=== PATIENT | male | born 1985 | race African-American/Black ===

== ENCOUNTER → 2022-07-05 | Outpatient (CLI) | payer OTHER | LOC: COL.PUL 12:59 | DX: R06.02 Shortness of breath (principal) | CPT/HCPCS: J7674 ==

== ENCOUNTER → 2022-09-26 | Outpatient (CLI) | payer OTHER | LOC: COL.PUL 10:00 | DX: R06.02 Shortness of breath (principal) | CPT/HCPCS: J7674 ==

== ENCOUNTER → 2022-10-04 | Outpatient (CLI) | payer OTHER | LOC: MHCPAIN 07:54 | DX: M47.897 Other spondylosis, lumbosacral region (principal); M54.16 Radiculopathy, lumbar region; M53.3 Sacrococcygeal disorders, not elsewhere classified; I10 Essential (primary) hypertension; J45.909 Unspecified asthma, uncomplicated | CPT/HCPCS: G0463 ==